=== PATIENT | female | born 1950 | race Caucasian/White ===

== ENCOUNTER 2020-10-27 12:47 | Outpatient (RCR) | payer MEDICARE, BC, SELFPAY | END 2020-10-27 23:59 | LOC: IMMUN 12:47 | PROVIDERS: PCP Family Medicine; Visit Provider Family Medicine | DX: Z23 Encounter for immunization (principal) | CPT/HCPCS: 0011A; 0012A ==

== ENCOUNTER 2022-05-08 17:07 | Emergency (ER) | payer MEDICARE, BC, SELFPAY ==
[2022-05-08 17:08] VITALS: BP 195/74; PULSE 92; RESP 16; TEMP 36.6; O2SAT 100; BMI 23.8
--- NOTE | 2022-05-08 17:11 | RAD_ITS ---
STUDY: X-RAY - LEFT HAND REASON FOR EXAM: Female, 72 years old. FALL TECHNIQUE: 3 view(s) of the hand. COMPARISON: None. FINDINGS: Normal radiocarpal articulation. Normal distal radioulnar joint. Normal visualized carpal bones. Normal carpal articulations There is degenerative arthrosis of the carpometacarpal (CMC) articulation of the thumb. Normal second through fifth carpometacarpal joints. Normal metacarpi. Normal metacarpophalangeal joint of the thumb. Normal interphalangeal joint of the thumb. Normal proximal and distal phalanges of the thumb. Normal metacarpophalangeal joints of the second through fifth fingers. There is diffuse articular joint space narrowing of the proximal and distal interphalangeal joints of the second through fifth fingers, but without erosive changes or periarticular soft tissue swelling. Normal phalanges of the second through fifth fingers. The soft tissue structures are unremarkable. RAD/Hand Min 3 Views IMPRESSION: No acute fracture or dislocation. Electronically Signed: Janak Light MD at 17:39 EDT ,
--- NOTE | 2022-05-08 17:39 | EX.ED.UPPERE ---
HPI History of Present Illness Chief Complaint: Fall Informant: patient and spouse/S.O. Onset/Context/Timing Onset: Today Narrative Narrative: Here with spouse for evaluation fall coming down a ladder. Missed the last step. Fell onto her buttocks and injured her left hand. No head injuries. Able ambulate. [id number]. No anticoagulation. History of hypertension hyperlipidemia. Denies headache neck pain back pain. Ambulated department. No other complaints. PFSH PFSH Allergy/AdvReac Type Severity Reaction Status Date / Time No Known Allergies Allergy Verified 05/08/22 17:07 Social History Smoking Status: Never smoker ROS ROS ED Constitutional Constitutional ED: Denies chills, fever(s) or sweats Eyes Eyes: Denies change in vision ENT ENT ED: Denies dysphagia or sore throat Cardiovascular Cardiovascular: Denies chest pain, leg edema, palpitations or racing heartbeat Respiratory/Chest Respiratory/Chest: Denies cough, dyspnea or dyspnea on exertion Gastrointestinal Gastrointestinal: Denies abdominal pain, diarrhea, nausea or vomiting Genitourinary Genitourinary ED: Denies dysuria, hematuria or urinary frequency Musculoskeletal Musculoskeletal: Reports extremity pain and other Details: Left hand pain ; Denies back pain or neck pain Integumentary Denies rash or wounds Neurologic Neurologic: Denies headache(s), paresthesias or weakness EXAM Physical Exam Const Vital Signs: 05/08/22 17:08 Temperature 97.9 F Temperature Source Temporal Pulse Rate 92 Respiratory Rate 16 Blood Pressure 195/74 H Blood Pressure Mean 114 Pulse Ox 100 Oxygen Delivery Method Room Air Positive well nourished and well developed Constitutional Narrative: GCS 15. General Appearance ED: well developed and NAD HEENT Reports moist mucous membranes normocephalic and atraumatic Eyes PERRL, EOMs intact bilaterally and conjunctivae normal General Eye ED: Yes normal appearance of both eyes Neck no lymphadenopathy and supple General: Negative for tenderness Chest Wall Chest: Negative for tenderness Resp normal respiratory effort and normal air movement Effort and Inspection: symmetric chest movement; Negative for respiratory distress Cardio regular rate, regular rhythm and no murmurs Peripheral Pulses: pulses 2+ throughout GI normal to inspection, nondistended, normoactive bowel sounds and non-tender Palpation: Negative for guarding or rebound tenderness present Back/Spine no CVA tenderness and no thoracic nor lumbar tenderness Extremity Extremity Narrative: Active full range of motion upper extremities. Left upper extremity: No elbow or wrist tenderness. There is tender palpation on the thenar eminence of the left hand. Skin intact. No deformities. Negative logroll of the lower extremities. Pulses intact x4. General Extremety ED: Yes tenderness; Negative for edema General Extremity: Negative for edema Neuro oriented x3 and no sensory deficits noted Sensorium / Orientation: awake and alert Skin no rashes or lesions noted and no wounds MDM MDM MDM Narrative Medical decision making narrative: Patient mechanical fall down 1 step injury left hand. Three-view left hand reviewed by myself shows no fracture or dislocation. Ice was placed he declined any medications. Thumb spica for support due to location of injury. Elevated blood pressure in the ED asymptomatic with history of hypertension. She rechecked this as an outpatient follow-up with her PCP. All questions were answered. Discharge Plan Triage Chief Complaint: Fall ED Provider: Kevin Bear Dx/Rx/DC Orders Clinical Impression: Contusion of left hand, Fall, Elevated blood pressure reading in office with diagnosis of hypertension Instructions: ED Hand Contusion Primary Care Provider: Anthony Olivas Referrals: Anthony Olvias MD [Primary Care Provider] - 1 Week if not improving Activity Restrictions/Additional Instructions: Left hand x-ray negative for fractures. Use splint for comfort. Tylenol 1 g every 6 hours as needed. Blood pressure elevated in ED take your medicines. Monitor rechecked by your PCP. Disposition Disposition: Home, Self Care Discharge Date/Time: 05/08/22 17:54
== END 2022-05-08 17:54 | disposition home or self-care (01) ==
PROVIDERS: Emergency Provider Emergency Medicine; PCP Family Medicine; Visit Provider Emergency Medicine
DX: S60.222A Contusion of left hand, initial encounter (principal); I10 Essential (primary) hypertension; W11.XXXA Fall on and from ladder, initial encounter
CPT/HCPCS: 73130; 99282